=== PATIENT | male | born 1970 | race Caucasian/White ===

== ENCOUNTER 2020-04-05 01:19 | Emergency (ER) | payer OTHER ==
[2020-04-05 01:23] VITALS: TEMP 98.5; BMI 28.7
--- NOTE | 2020-04-05 01:36 | PDOC ---
History of Present Illness - General Chief Complaint: Chest Pain Stated Complaint: CHEST PAIN Time Seen by Provider: 04/05/20 01:30 History Source: Patient Exam Limitations: No Limitations - History of Present Illness Initial Comments: 04/05/20 01:33 This is a 49-year-old male who comes in complaining of 2 episodes of chest pain in the last several days. Each episode lasted a few seconds. And was associated with some sweating otherwise patient denied any shortness of breath, nausea, radiation or any other complaints. Patient has no cardiac risk factors. Patient denies family history of cardiac disease. Patient is otherwise healthy. Allergies: as per nursing notes Past Medical History: none Social history: Lives with family. No smoking. No alcohol. No illicit drugs. Surgical history: None General: No fevers or chills, no weakness, no weight loss HEENT: No change in vision. No sore throat,. No ear pain CardioVascular: + chest discomfort. No shortness of breath Respiratory:No cough, or wheezing. Gastrointestinal: no nausea, vomiting, diarrhea or constipation, No rectal bleeding Genitourinary: No dysuria, hematuria, or frequency Musculoskeletal: No joint or muscle pain or swelling Neurologic: No headache, vertigo, dizziness or loss of consciousness Psychiatric: nor depression Skin: No rashes or easy bruising Endocrine: no increased thirst or abnormal weight change Allergic: no skin or latex allergy All other systems reviewed and normal Exam: General: Well-nourished well-developed individual, no acute distress HEENT: Throat: Normal, tonsils normal, no erythema or exudate Neck: Supple, no meningeal signs, no lymphadenopathy Eyes::Pupils equal reactive and round, extraocular motion intact Chest: Nontender to palpation Cardiac: S1-S2 normal, regular rate and rhythm, no murmurs rubs or gallops Respiratory: Lungs clear to auscultation bilateral Abdomen: Soft, nondistended, normal bowel sounds, there is no tenderness on palpation diffusely Extremities: Warm, dry, no cyanosis, clubbing, or edema Skin: No rashes Neuro: Alert and oriented x3, CN II - XII intact, nonfocal exam with normal strength, normal sensation, normal reflexes, normal gait, Psych: Normal mood and affect Assessment and plan: This is a 49-year-old male with 2 short episodes of chest pain. Patient had a cardiogram that showed normal sinus rhythm at a rate of [address]-T wave changes normal EKG. Patient had cardiac enzymes done that were initially 0.06 so they were repeated and repeat was normal at 0.05 and patient was discharged and patient was discharged we will follow-up with his primary care doctor. Patient heart score was 1 based on the normal troponin if I based it on the 0.06 it was 2. Both heart score is place patient in the okay to discharge risk category 04/05/20 05:56 04/05/20 06:02 Past History - Psycho-Social/Smoking History Smoking History: Current every day smoker Number of Cigarettes Smoked Daily: 20 Information on smoking cessation initiated: No - Substance Abuse Hx (Audit-C & DAST Scrn) How often the patient has a drink containing alcohol: Never Score: In Men: 4 or > Positive; In Women: 3 or > Positive: 0 Screen Result (Pos requires Nsg. Audit-10AR): Negative In the last yr the pt used illegal drug/Rx for NonMed reason: No Score: Yes response is considered Positive: 0 Screen Result (Positive result requires Nsg. DAST-10): Negative *Physical Exam - Vital Signs Last Vital Signs Temp Pulse Resp BP Pulse Ox 98.5 F 75 20 117/89 98 04/05/20 01:20 04/05/20 02:15 04/05/20 01:20 04/05/20 02:15 04/05/20 02:15 Heart Score/ECG Review - History History: Slightly suspicious - Electrocardiogram EKG: Normal - Age Age: 45-65 - Risk Factors Based on the list above the patient has:: No risk factors known - Troponin Troponin: </= normal limit - Score Heart Score - Total: 1 ED Treatment Course - ADDITIONAL ORDERS Additional order review: Laboratory Results 04/05/20 04/05/20 04:30 01:35 Creatine Kinase 177 192 Creatine Kinase Index No Result Required. CK-MB (CK-2) < 1.0 Troponin I 0.05 0.06 H Discharge - Discharge Information Problems reviewed: Yes Clinical Impression/Diagnosis: Atypical chest pain Condition: Stable Disposition: HOME - Admission No - Follow up/Referral - Patient Discharge Instructions Additional Instructions: Your work-up was negative for any acute or cardiac causes. Return to the emergency department immediately with ANY new, persistent or worsening symptoms. Continue any medications as previously prescribed by your physician. You should follow up with your primary doctor as soon as possible regarding tod navid's emergency department visit. . Please make sure your doctor reviews the results of your emergency evaluation. Thank you for coming to the Emergency Department today for your care. It was a pleasure to see you today. Please note that your evaluation is INCOMPLETE until you follow-up with your doctor. - Post Discharge Activity
[2020-04-05 05:58] VITALS: BP 114/77; PULSE 73
--- NOTE | 2020-04-05 10:40 | EKG ---
Test Reason : Blood Pressure : / mmHG Vent. Rate : 083 BPM Atrial Rate : 083 BPM P-R Int : 156 ms QRS Dur : 098 ms QT Int : 376 ms P-R-T Axes : 034 -15 019 degrees QTc Int : 441 ms NORMAL SINUS RHYTHM NORMAL ECG NO PREVIOUS ECGS AVAILABLE Confirmed by FELIX ALEXANDER MD ([id number]) on 04/05/2020 10:39:58 AM Referred By: RYAN MONTENEGRO Confirmed By:FELIX ALEXANDER MD
== END 2020-04-05 06:20 | disposition home or self-care (01) ==
LOC: FER 01:19
DX: R07.89 Other chest pain (principal)
CPT/HCPCS: 36415; 82550; 82553; 84484; 93005; 99283-25